=== PATIENT | female | born 1965 | race Two or more races ===

== ENCOUNTER 2022-10-16 12:33 | Outpatient (CLI) | payer OTHER | END 2022-10-16 12:46 | disposition home or self-care (01) | LOC: MAMO-SONO 12:33 | PROVIDERS: ATTEND General Practice | DX: R10.9 Unspecified abdominal pain (principal); N20.0 Calculus of kidney; M06.4 Inflammatory polyarthropathy; Z12.31 Encounter for screening mammogram for malignant neoplasm of breast ==